=== PATIENT | female | born 1960 | race Caucasian/White ===

== ENCOUNTER → 2019-11-08 | Day surgery (SDC) | payer BC ==
[~2019-11-08] MED LIST: Lactated Ringers 1,000 ML IV SCH; Lidocaine 1%/Sod Bicarbonate in NS 8.4% 1 ML Syringe IDERM PRN; Sodium Chloride 0.9% 10 ML Syringe FLUSH PRN
[2019-11-08] MEDS: Polymyxin B/Trimethoprim 10 ML Bottle EYELF SCH ×4 (08:04→10:05)
[2019-11-08] MEDS: Brimonidine 0.2% Ophth Soln 5 ML Bottle EYELF SCH ×4 (08:09→10:05)
--- NOTE | 2019-11-08 08:15 | PCM.PREANE ---
Preanesthetic Assessment - Anesthesia/Transfusion/Family Hx Anesthesia History: Prior Anesthesia Without Reaction Family History of Anesthesia Reaction: No Transfusion History: No Prior Transfusion(s) - Review of Systems General: No Symptoms Pulmonary: No Symptoms Cardiovascular: No Symptoms Gastrointestinal: No Symptoms Neurological: No Symptoms Other: Reports: None - Physical Assessment NPO Status Date: 11/07/19 NPO Status Time: 18:00 Height: 1.55 m Weight: 88.451 kg ASA Class: 2 Mental Status: Alert & Oriented x3 Airway Class: Mallampati = 2 Dentition: Reports: Broken Tooth/Teeth, Missing Tooth/Teeth (poor dentition) ROM/Head Extension: Full Lungs: Clear to Auscultation, Normal Respiratory Effort Cardiovascular: Regular Rate, Regular Rhythm - Allergies Allergies/Adverse Reactions: Allergies Allergy/AdvReac Type Severity Reaction Status Date / Time No Known Allergies Allergy Verified 11/07/19 15:25 - Anesthesia Plan Beta Hcava: Labetalol Med Last Dose Date: 11/07/19 Med Last Dose Time: 17:00 - Acknowledgements Anesthesia Type Planned: MAC Pt an Appropriate Candidate for the Planned Anesthesia: Yes Alternatives and Risks of Anesthesia Discussed w Pt/Guardian: Yes Pt/Guardian Understands and Agrees with Anesthesia Plan: Yes PreAnesthesia Questionnaire HEENT History: Reports: Cataract Cardiovascular History: Reports: Hypertension, SOB on Exertion Respiratory History: Reports: None Gastrointestinal History: Reports: None Musculoskeletal History: Reports: Back Pain, Chronic Psychiatric History: Reports: Anxiety, Depression Endocrine/Metabolic History: Reports: Diabetes, Type I (BS 248 @ 0816) Oncologic (Cancer) History: Reports: Breast (diagnosed 2014) - Past Surgical History GI Surgical History: Reports: Colonoscopy Female Surgical History: Reports: Section Neurological Surgical History: Reports: Lumbar Spine Musculoskeletal Surgical History: Reports: Other (See Below) ((B) carpal tunnel) - SUBSTANCE USE Smoking Status *Q: Former Smoker - HOME MEDS Home Medications: Home Meds Escitalopram [Lexapro] 20 mg PO DAILY 11/07/19 [History] Insulin Regular, Human [NovoLIN R] 22 units SQ BID 11/07/19 [History] Labetalol HCl [Labetalol] 100 mg PO BID 11/07/19 [History] Letrozole [Femara] 2.5 mg PO DAILY 11/07/19 [History] Losartan/Hydrochlorothiazide [Losartan-HCTZ 100-25 MG] 1 tab PO DAILY 11/07/19 [ History] Magnesium Oxide [Magnesium Oxide 400] 400 mg PO DAILY 11/07/19 [History] atorvaSTATin [Lipitor] 40 mg PO DAILY 11/07/19 [History] - CURRENT (IN HOUSE) MEDS Current Meds: Current Medications Brimonidine Tartrate (Alphagan 0.2% Ophth Soln) 0 ml EYELF ONETIME ANIA Stop: 11/08/19 16:00 Last Admin: 11/08/19 08:09 Dose: 1 drop Cefuroxime Sodium (Zinacef) 0 mg EYELF ASDIRECTED ANIA Stop: 11/08/19 16:00 Lactated Ringer's (Ringers, Lactated) 1,000 mls @ 125 mls/hr IV ASDIRECTED ANIA Stop: 11/08/19 23:00 Lidocaine HCl (Xylocaine-Mpf 1%) 0 ml INJECT ONETIME ANIA Stop: 11/08/19 16:00 Lidocaine/Sodium Bicarbonate (Buffered Lidocaine 1% In Ns 8.4%) 0.25 ml IDERM ONETIME PRN PRN Reason: Prior to IV Start Stop: 11/08/19 18:00 Pilocarpine HCl (Pilocar 4% Ophth Soln) 0 ml EYELF ASDIRECTED ANIA Stop: 11/08/19 16:00 Polymyxin/Trimethoprim Sulfate (Polytrim Ophth Soln) 0 ml EYELF ASDIRECTED ANIA Stop: 11/08/19 16:00 Last Admin: 11/08/19 08:04 Dose: 1 drop Sodium Chloride (Saline Flush) 10 ml FLUSH ASDIRECTED PRN PRN Reason: Keep Vein Open Stop: 11/08/19 18:00 Tetracaine HCl (Tetracaine 0.5% Steri-Unit Tia) 0 ml EYELF ASDIRECTED ANIA Stop: 11/08/19 16:00 Tropicamide (Mydriacyl 1% Ophth Soln) 0 ml EYELF ASDIRECTED ANIA Stop: 11/08/19 16:00 Discontinued Medications Phenylephrine HCl (Chucho-Synephrine 2.5% Ophth Soln) 0 ml EYELF ASDIRECTED ANIA Stop: 11/08/19 06:01
[2019-11-08] MEDS: Phenylephrine 2.5% Ophth Soln 2 ML Bot EYELF SCH ×6 (08:20→09:46)
[2019-11-08] MEDS: Tropicamide 1% Ophth Soln 15 ML Bottle EYELF SCH ×4 (08:25→09:17)
[2019-11-08] MEDS: Lidocaine 1% PF 2 ML SDV INJECT SCH ×2 (09:13→09:52)
[2019-11-08] MEDS: Pilocarpine 4% Ophth Soln 15 ML Bot EYELF SCH ×2 (09:14→10:05)
[2019-11-08] MEDS: Cefuroxime 10 MG/ML SYRINGE EYELF SCH ×2 (09:14→10:04)
[2019-11-08] MEDS: Tetracaine HCl/PF 0.5% 4 ML Bottle EYELF SCH ×3 (09:14→09:53)
--- NOTE | 2019-11-08 10:08 | PCM48HPAN ---
Post Anesthesia Note - EVALUATION WITHIN 48HRS OF ANESTHETIC Vital Signs in Normal Range: Yes Patient Participated in Evaluation: Yes Respiratory Function Stable: Yes Airway Patent: Yes Cardiovascular Function Stable: Yes Hydration Status Stable: Yes Pain Control Satisfactory: Yes Nausea and Vomiting Control Satisfactory: Yes Mental Status Recovered: Yes Vital Signs: Last Vital Signs Temp 36.2 C 11/08/19 07:50 Pulse 63 11/08/19 07:50 Resp 16 11/08/19 07:50 BP 173/86 H 11/08/19 07:50 Pulse Ox 95 11/08/19 07:50
== END ==
LOC: JD.SDS 07:45
PROVIDERS: ATTEND Ophthalmology
DX: E10.36 Type 1 diabetes mellitus with diabetic cataract (principal); H25.043 Posterior subcapsular polar age-related cataract, bilateral; H02.834 Dermatochalasis of left upper eyelid; H02.831 Dermatochalasis of right upper eyelid; H53.031 Strabismic amblyopia, right eye; H16.103 Unspecified superficial keratitis, bilateral; H16.223 Keratoconjunctivitis sicca, not specified as Sjogren's, bilateral; I10 Essential (primary) hypertension; F32.9 Major depressive disorder, single episode, unspecified; F41.9 Anxiety disorder, unspecified; Z87.891 Personal history of nicotine dependence; Z79.899 Other long term (current) drug therapy; Z79.4 Long term (current) use of insulin
CPT/HCPCS: 66984; 82962; C1780; J0697; J2001